=== PATIENT | female | born 1950 | race Caucasian/White ===

== ENCOUNTER 2017-01-06 08:00 | Outpatient (CLI) | payer MEDICARE, BC ==
[~2017-01-06] VITALS: Ht 165.1 cm; Wt 95.0 kg
[2017-01-07 12:01] VITALS: Ht 165.1 cm; Wt 95.0 kg
== END 2017-01-06 23:59 | disposition home or self-care (01) ==
LOC: LAB 08:00 → EDSTATUS 01-24 09:30
PROVIDERS: ATTEND Orthopaedic Surgery
DX: M48.06 Spinal stenosis, lumbar region (principal)
CPT/HCPCS: 86850; 86900; 86901; 86920

== ENCOUNTER 2017-01-19 05:22 | Inpatient (IN) | payer MEDICARE, BC ==
[2017-01-18 12:01] LABS: BASOPHILS % 0.4 % (0.0-2.0); EOSINOPHILS # 0.2 10^3/ul (0.0-0.5); HEMATOCRIT 39.7 % (37.0-47.0); HEMOGLOBIN 12.4 g/dl (12.0-16.0); LYMPHOCYTES # 2.4 10^3/ul (0.8-2.9); LYMPHOCYTES % 24.9 % (15.0-51.0); MEAN CORPUSCULAR HGB CONC 31.2 g/dl (32.0-37.0); MEAN CORPUSCULAR VOLUME 86.3 fl (82.0-101.0); MEAN PLATELET VOLUME 9.2 fl (7.4-10.4); MONOCYTES % 10.6 % (0.0-11.0); NEUTROPHILS % 61.8 % (39.0-77.0); PLATELET COUNT 284 10^3/UL (140-415); RED CELL DISTRIBUTION WIDTH 13.2 % (11.5-14.5); WHITE BLOOD COUNT 9.7 10^3/ul (4.8-10.8)
[2017-01-18 12:15] LABS: ADD UMIC YES; UR ASCORBIC ACID NEGATIVE (NEGATIVE); UR BILIRUBIN (Dip) NEGATIVE (NEGATIVE); UR BLOOD (Dip) NEGATIVE (NEGATIVE); UR CLARITY CLEAR (CLEAR); UR COLOR STRAW (YELLOW); UR GLUCOSE (Dip) NEGATIVE (NEGATIVE); UR KETONES (Dip) NEGATIVE (NEGATIVE); UR LEUKOCYTE ESTERASE (Dip) TRACE Leu/ul (NEGATIVE); UR NITRITE (Dip) NEGATIVE (NEGATIVE); UR RBC 0 /HPF (0-5); UR SPECIFIC GRAVITY (Dip) 1.006 (1.003-1.030); UR TOTAL PROTEIN (Dip) NEGATIVE (NEGATIVE); UR UROBILINOGEN (Dip) NEGATIVE (NEGATIVE)
[2017-01-18 12:25] LABS: ALBUMIN 4.6 g/dl (3.3-4.9); ALBUMIN/GLOBULIN RATIO 1.7; BILIRUBIN,INDIRECT 0.2 mg/dl (0-1.1); BILIRUBIN,TOTAL 0.2 mg/dl (0.2-1.3); CALCIUM 10.7 mg/dl (8.4-10.2); CREATININE 0.92 mg/dl (0.44-1.00); POTASSIUM 5.7 mmol/L (3.5-5.1); TOTAL PROTEIN 7.3 g/dl (6.1-8.1)
[2017-01-18 12:53] LABS: INR 0.88; PROTIME 11.9 Sec (12.2-14.2); PT RATIO 0.9
[~2017-01-19] VITALS: Ht 165.1 cm; Wt 94.5 kg
[2017-01-19] VITALS (23 sets, daily range): BP systolic 102–156; BP diastolic 50–97; PULSE 54–88; RESP 12–24; Ht 165.1 cm; Wt 94.5 kg
[~2017-01-19 05:22] MED LIST: LACTATED RINGER'S 1,000 ML IV* SCH; VANCOMYCIN 1 GM (PMX) 250 ML IVPB ONE
[2017-01-19] MEDS ORDERED: hydrALAzine 20 MG INJ IV PRN (06:30)
[2017-01-19] MEDS ORDERED: MIDAZOLAM 1 MG/ML 2 ML INJ IV PRN (06:30)
[2017-01-19] MEDS ORDERED: MEPERIDINE 25 MG INJ IV PRN (06:30)
[2017-01-19] MEDS ORDERED: DIPHENHYDRAMINE 50 MG INJ IV PRN (06:30)
[2017-01-19] MEDS ORDERED: ATROPINE 1 MG/10 ML SYRINGE IV PRN (06:30)
[2017-01-19] MEDS ORDERED: OXYCODONE/ACETAMINOPHEN (5/325) TAB PO PRN ×2 (06:30)
[2017-01-19] MEDS ORDERED: FENTAnyl 50 MCG/ML VIAL IV PRN ×2 (06:30)
[2017-01-19] MEDS ORDERED: EPHEDrine SULFATE 50 MG/5 ML SYG IV PRN (06:30)
[2017-01-19] MEDS ORDERED: LABETALOL HCL 20MG INJ IV PRN (06:30)
[2017-01-19] MEDS ORDERED: HYDROmorphONE (0.2 MG/ML) 10ML SYG IV PRN ×2 (06:30)
[2017-01-19] MEDS ORDERED: ONDANSETRON 4 MG INJ IV PRN ×2 (06:30→10:30)
[2017-01-19] MEDS ORDERED: morphine (1 MG/ML) 10ML SYRINGE IV PRN ×3 (06:30)
[2017-01-19] MEDS ORDERED: PREDNISOLONE LEFT EYE (06:31)
[2017-01-19] MEDS ORDERED: BRIM10DR2 LEFT EYE (06:31)
[2017-01-19] MEDS ORDERED: ROSU5TAB5 PO (06:31)
[2017-01-19] MEDS ORDERED: CELE200C PO (06:31)
[2017-01-19] MEDS ORDERED: SOLI10TA5 PO (06:31)
[2017-01-19] MEDS ORDERED: METF1000 PO (06:31)
[2017-01-19] MEDS ORDERED: SITA100T8 PO (06:31)
[2017-01-19] MEDS ORDERED: CYAN100080 PO (06:31)
[2017-01-19] MEDS ORDERED: EZET10TA3 PO (06:31)
[2017-01-19] MEDS ORDERED: PREG150C PO (06:31)
[2017-01-19] MEDS ORDERED: ERGO500037 PO (06:31)
--- NOTE | 2017-01-19 07:00 | HPN ---
Date/Time of Note Date/Time of Note DATE: 01/19/17 TIME: 07:00 Interval H&P Admission Note Pt. seen H&P reviewed: No system changes CIRILO ARIAS MD Jan 19, 2017 07:00
--- NOTE | 2017-01-19 07:53 | RADRPT ---
PROCEDURE: XR Lumbar Spine one view. CLINICAL INDICATION: Low back pain. Intraoperative. TECHNIQUE: Prone portable cross-table lateral. COMPARISON: No prior studies are available for comparison. FINDINGS: For the purposes of this report, the last apparent true disc level is considered to be L5-S1. Based on this, the posterior needle markers are present and lower L3 and lower L5 spinous process level. IMPRESSION: 1. Intraoperative imaging as described above. RPTAT: QQ .Emigdio Veliz MD, MD Date Time Electronically viewed and signed by .Emigdio Veliz MD, MD on 01/19/2017 07:53 .R/
[2017-01-19] MEDS ORDERED: POLYMYXIN/BACITRACIN 1L IRRIG IRR ONE (08:23)
[2017-01-19] MEDS ORDERED: BUPIVACAINE 0.25% (MPF) 10 ML 10 ML VIAL INJ ONE (08:24)
--- NOTE | 2017-01-19 08:41 | RADRPT ---
PROCEDURE: XR Lumbar Spine one view. CLINICAL INDICATION: Low back pain. Intraoperative. TECHNIQUE: Prone portable cross-table lateral. COMPARISON: Prior study done earlier the same day. FINDINGS: For the purposes of this report, the last apparent true disc level is considered to be L5-S1. Based on this, the posterior surgical instruments are noted overlying the spinous processes of L2, L3, an d L4. IMPRESSION: 1. Intraoperative imaging as described above. Call report: A call report of the findings was made to Dr. Chang on 01/19/2017 at 0800 hours. RPTAT: QQ .Emigdio Veliz MD, MD Date Time Electronically viewed and signed by .Emigdio Veliz MD, MD on 01/19/2017 08:40 .R/
[2017-01-19] MEDS ORDERED: GELATIN COMPRESSED 100CM SPONGE TOP ONE (09:33)
[2017-01-19] MEDS ORDERED: THROMBIN 5000 UNIT VIAL TOP ONE (09:33)
[2017-01-19] MEDS: HYDROmorphONE (0.2 MG/ML) 10ML SYG IV PRN ×2 (10:16→10:25)
[2017-01-19] MEDS ORDERED: ACETAMINOPHEN 325 MG TAB PO PRN (10:30)
[2017-01-19] MEDS ORDERED: CEPASTAT LOZENGE MT PRN (10:30)
[2017-01-19] MEDS ORDERED: DIAZEPAM 5 MG/ML SYG IM PRN (10:30)
[2017-01-19] MEDS ORDERED: NALOXONE (0.4 MG/ML) INJ IV PRN (10:30)
[2017-01-19] MEDS ORDERED: AL HYDROX/MG HYDROX/SIMETH 30 ML CUP PO PRN (10:30)
[2017-01-19] MEDS ORDERED: HYDROmorphONE 0.2 MG/ML PCA IV SCH (10:30)
[2017-01-19] MEDS ORDERED: NACL 0.9% 3 ML SYG IV SCH (10:30)
[2017-01-19] MEDS ORDERED: ZOLPIDEM 5 MG TAB PO PRN (10:30)
[2017-01-19] MEDS ORDERED: TRIMETHOBENZAMIDE 100 MG/ML VIAL IM PRN (10:30)
[2017-01-19] MEDS ORDERED: VANCOMYCIN 1 GM (PMX) 250 ML IVPB SCH (10:30)
[2017-01-19] MEDS ORDERED: DIAZEPAM 5 MG TAB PO PRN (10:30)
[2017-01-19] MEDS ORDERED: HYDROCODONE/APAP (5/325) TAB PO PRN (10:30)
[2017-01-19] MEDS ORDERED: PROCHLORPERAZINE 10 MG TAB PO PRN (10:30)
[2017-01-19] MEDS ORDERED: BETHANECHOL 25 MG TAB PO PRN (10:30)
[2017-01-19] MEDS ORDERED: DIPHENHYDRAMINE 50 MG CAP PO PRN (10:30)
--- NOTE | 2017-01-19 10:47 | OPR ---
Date/Time of Note Date/Time of Note DATE: 01/19/17 TIME: 10:42 Operative Report Preoperative Diagnosis Lumbar spinal stenosis at L2-L3 and L4. Postoperative Diagnosis Same Operation/Procedure Performed Central decompressive laminectomy at L2 Central decompressive laminectomy at L3 Central decompressive laminectomy at L4 Partial central decompressive laminectomy at L5 (superiorly) Baxano foraminal decompression L5 on the right Medial facetectomy and foraminotomy L2-3 L3-4 L4-5 bilateral Cosmetic wound closure (12 cm) Lateral localizing lumbar radiographs (2) Intraoperative nerve monitoring (2 hours) Surgeon: CIRILO ARIAS MD personnel assistant: ZIYAD LANDEROS Anesthesia: general Estimated Blood Loss: 150 - 200 ml's Specimens Spinous process of L2-L3 and L4 Grafts/Implants None Complications: None CIRILO ARIAS MD Jan 19, 2017 10:47
[2017-01-19] MEDS ORDERED: DEXTROSE 50% 50 ML SYRINGE IV PRN ×2 (13:00)
[2017-01-19] MEDS ORDERED: GLUCOSE GEL 15 GRAM TUBE PO PRN ×2 (13:00)
[2017-01-19] MEDS ORDERED: GLUCAGON 1 MG INJ IM PRN (13:00)
[2017-01-19] MEDS ORDERED: GLUCOSE GEL 15 GRAM TUBE BUCCAL PRN (13:00)
[2017-01-19] MEDS: SOD CHLORIDE 0.45% 1,000 ML IV SCH ×2 (13:15→20:30)
[2017-01-19] MEDS: INSULIN ASPART [NOVOLOG] 3 ML PEN SC SCH (17:25)
[2017-01-19] MEDS ORDERED: hydrALAzine 20 MG INJ ONE (18:03)
[2017-01-19] MEDS ORDERED: POLYMYXIN/BACITRACIN 1L IRRIG ONE (18:03)
[2017-01-19] MEDS ORDERED: DEXAMETHASONE 4 MG/ML 1 ML INJ ONE (18:03)
[2017-01-19] MEDS ORDERED: ROCURONIUM 50 MG INJ ONE (18:03)
[2017-01-19] MEDS ORDERED: BUPIVACAINE 0.25% (MPF) 10 ML 10 ML VIAL ONE (18:03)
[2017-01-19] MEDS ORDERED: LABETALOL HCL 20MG INJ ONE (18:03)
[2017-01-19] MEDS ORDERED: ONDANSETRON 4 MG INJ ONE (18:03)
[2017-01-19] MEDS ORDERED: MIDAZOLAM 1 MG/ML 2 ML INJ ONE (18:03)
[2017-01-19] MEDS ORDERED: GELATIN SIZE 100 SPONGE ONE (18:03)
[2017-01-19] MEDS ORDERED: HYDROmorphONE 0.2 MG/ML PCA ONE (18:03)
[2017-01-19] MEDS ORDERED: FENTAnyl 50 MCG/ML VIAL ONE (18:03)
[2017-01-19] MEDS ORDERED: GLYCOPYRROLATE 0.4 MG INJ ONE (18:03)
[2017-01-19] MEDS ORDERED: NEOSTIGMINE 3 MG/3 ML SYRINGE ONE (18:03)
[2017-01-19] MEDS ORDERED: THROMBIN 5000 UNIT VIAL ONE (18:03)
[2017-01-19] MEDS ORDERED: LIDOCAINE 2% (SDV) 5 ML INJ ONE (18:03)
[2017-01-19] MEDS ORDERED: PROPOFOL 20 ML ONE (18:03)
[2017-01-19] MEDS: EZETIMIBE 10 MG TAB PO SCH (18:14)
[2017-01-19] MEDS: BRIMONIDINE 0.2%-TIMOLOL 0.5% 5ML OPH LEFT EYE SCH ×2 (18:14→20:43)
[2017-01-19] MEDS: metFORMIN 500 MG TAB PO SCH (18:14)
[2017-01-19] MEDS: VANCOMYCIN 1 GM (PMX) 250 ML IVPB SCH (19:43)
[2017-01-19] MEDS: RANITIDINE 150 MG TAB PO SCH (20:39)
[2017-01-19] MEDS: PREGABALIN 75 MG CAP PO SCH (20:40)
[2017-01-20] MEDS: SOD CHLORIDE 0.45% 1,000 ML IV SCH (00:17)
[2017-01-20 05:10] VITALS: BP 112/56; PULSE 67; RESP 18
[2017-01-20 05:18] LABS: HEMOGLOBIN 9.8 g/dl (12.0-16.0)
[2017-01-20 06:01] LABS: CREATININE 0.82 mg/dl (0.44-1.00); POTASSIUM 4.3 mmol/L (3.5-5.1)
[2017-01-20 06:09] LABS: MAGNESIUM 1.7 mg/dl (1.7-2.5); PHOSPHORUS 3.6 mg/dl (2.5-4.9)
--- NOTE | 2017-01-20 07:15 | PN ---
Date/Time of Note Date/Time of Note DATE: 01/20/17 TIME: 07:07 Assessment/Plan Lines/Catheters IV Catheter Type (from Nrsg): Saline Lock Garcia in Place (from Nrsg): Yes Subjective 24 Hr Interval Summary Pt is POD #1 following multilevel lumbar decompression. She is doing well. She has been up ambulating. Drain output was 50cc and this will be monitored. VS are stable. She is afebrile.Hgb is 9.8, patient states she recently started taking iron supplements. Consider discharge if her hemovac is able to be removed and if she is cleared by Medicine. Discharge instructions reviewed with patient. Exam/Review of Systems Vital Signs Vitals Vital Signs Date Time Temp Pulse Resp B/P Pulse Ox O2 Delivery O2 Flow Rate FiO2 01/20/17 05:10 98.8 67 18 112/56 99 Nasal Cannula 2.0 Intake and Output 01/19/17 01/19/17 01/20/17 15:00 23:00 07:00 Intake Total 3750 ml 1350 ml 1520 ml Output Total 860 ml 580 ml 1050 ml Balance 2890 ml 770 ml 470 ml Results Result Diagram: 01/20/17 0440 01/20/17 0440 TERRIE TRAVIS Jan 20, 2017 07:15
--- NOTE | 2017-01-20 07:44 | CONS ---
Date/Time of Note Date/Time of Note DATE: 01/20/17 TIME: 07:42 Assessment/Plan Assessment/Plan Additional Assessment/Plan 1. Doing well post op lumbar laminectomy. 2. DM, sugars are acceptable 3. Mg noted, will replete. 4. DC per ortho and PT Consultation Date/Type/Reason Admit Date/Time Jan 19, 2017 at 05:22 Initial Consult Date Detailed Summary Respiratory: No cough, No shortness of breath Cardiovascular: No edema Gastrointestinal: No no complaints Genitourinary: other (martin in place) Musculoskeletal: back pain (mild with now absence of radicular leg pain) Exam/Review of Systems Vital Signs Vitals Vital Signs Date Time Temp Pulse Resp B/P Pulse Ox O2 Delivery O2 Flow Rate FiO2 01/20/17 05:10 98.8 67 18 112/56 99 Nasal Cannula 2.0 Intake and Output 01/19/17 01/19/17 01/20/17 15:00 23:00 07:00 Intake Total 3750 ml 1350 ml 1520 ml Output Total 860 ml 580 ml 1050 ml Balance 2890 ml 770 ml 470 ml Exam Neck: No jvd Respiratory: clear to auscultation Cardiovascular: regular rate and rhythm Gastrointestinal: soft Extremities: No edema (and no calf tend) Results Result Diagram: 01/20/17 0440 01/20/17 0440 Results 24 hrs Laboratory Tests Test 01/19/17 12:25 01/19/17 17:39 01/20/17 04:40 Bedside Glucose 186 136 Hemoglobin 9.8 #L Hematocrit 32.0 L Sodium Level 137 Potassium Level 4.3 Chloride Level 102 Carbon Dioxide Level 28 Anion Gap 11 # Blood Urea Nitrogen 12 Creatinine 0.82 Glucose Level 95 Calcium Level 9.0 Phosphorus Level 3.6 Magnesium Level 1.7 Medications Medications Current Medications Sodium Chloride (1/2 NS) 1,000 ml @ 100 mls/hr Q10H IV Last administered on t 00:17; Admin Dose 100 MLS/HR; Start 01/19/17 at 10:30 Acetaminophen/ Hydrocodone Bitart ([place] (5/325)) 1 tab Q4H PRN PO PAIN LEVEL 1 -5; Start 01/19/17 at 10:30 Acetaminophen/ Hydrocodone Bitart ([place] (5/325)) 2 tab Q4H PRN PO PAIN LEVEL 6 -10; Start 01/19/17 at 10:30 Zolpidem Tartrate (Ambien) 5 mg HS PRN PO INSOMNIA; Start 01/19/17 at 10:30 Prochlorperazine (Compazine) 10 mg Q4H PRN PO NAUSEA AND/OR VOMITING; Start at 10:30 Trimethobenzamide HCl (Tigan) 200 mg Q4H PRN IM NAUSEA AND/OR VOMITING; Start 01/19/17 at 10:30 Ondansetron HCl (Zofran Inj) 4 mg Q6H PRN IV NAUSEA AND/OR VOMITING; Start at 10:30 Al Hydrox/Mg Hydrox/Simethicone (Mag-Al Plus) 15 ml Q4H PRN PO CONSTIPATION; Start 01/19/17 at 10:30 Docusate Sodium (Colace) 100 mg BID PO ; Start 01/20/17 at 09:00 Acetaminophen (Tylenol Tab) 650 mg Q4H PRN PO TEMP GREATER THAN 101F OR PLUNKETT; Start 01/19/17 at 10:30 Ascorbic Acid (Vitamin C) 1,000 mg BID PO ; Start 01/20/17 at 09:00 Ferrous Sulfate (Ferrous Sulfate (Ec)) 325 mg TID PO ; Start 01/20/17 at 09:00 Ranitidine HCl (Zantac) 150 mg BID PO Last administered on 01/19/17 20:39; Admin Dose 150 MG; Start 01/19/17 at 21:00 Diazepam (Valium) 5 mg Q4H PRN PO MUSCLE SPASMS; Start 01/19/17 at 10:30 Diazepam (Valium) 5 mg Q4H PRN IM MUSCLE SPASMS; Start 01/19/17 at 10:30 Phenol (Cepastat Lozenge) 1 lozenge PRN PRN MT SORE THROAT Last administered on 01/19/17 18:14; Admin Dose 1 LOZENGE; Start 01/19/17 at 10:30 Bethanechol Chloride (Urecholine) 25 mg PRN PRN PO UNABLE TO VOID; Start at 10:30 Diphenhydramine HCl (Benadryl) 50 mg Q6H PRN PO PRURITUS; Start 01/19/17 at 10: 30 Hydromorphone HCl (Dilaudid FREIGHT BRAKEMAN) Q4PCA IV Last administered on 01/19/17 11:06 ; Admin Dose 6 MG; Start 01/19/17 at 10:30 Naloxone HCl 0.2 mg 0.2 mg Q2M PRN IV RR 8 BREATHS/MIN OR LESS; Start 01/19/17 at 10:30 Vancomycin HCl (Vancocin) 250 ml @ 125 mls/hr Q12H IVPB Last administered on 19:43; Admin Dose 125 MLS/HR; Start 01/19/17 at 19:00; Stop 01/20/17 at 08:59 Brimonidine/ Timolol (Combigan Oph) 1 drop BID LEFT EYE Last administered on 18:14; Admin Dose 1 DROP; Start 01/19/17 at 14:00 Cyanocobalamin (Vitamin B12) 1,000 mcg DAILY PO ; Start 01/20/17 at 09:00 EZETIMIBE (Zetia) 10 mg DAILY PO Last administered on 01/19/17 18:14; Admin Dose 10 MG; Start 01/19/17 at 14:00 Pregabalin (Lyrica) 150 mg BID PO Last administered on 01/19/17 20:40; Admin Dose 150 MG; Start 01/19/17 at 21:00 Miscellaneous Information 1 ea NOTE XX ; Start 01/19/17 at 13:00 Glucose (Glutose) 15 gm Q15M PRN PO DECREASED GLUCOSE; Start 01/19/17 at 13:00 Glucose (Glutose) 22.5 gm Q15M PRN PO DECREASED GLUCOSE; Start 01/19/17 at 13: 00 Dextrose (D50w Syringe) 25 ml Q15M PRN IV DECREASED GLUCOSE; Start 01/19/17 at 13:00 Dextrose (D50w Syringe) 50 ml Q15M PRN IV DECREASED GLUCOSE; Start 01/19/17 at 13:00 Glucagon (Glucagen) 1 mg Q15M PRN IM DECREASED GLUCOSE; Start 01/19/17 at 13:00 Glucose (Glutose) 15 gm Q15M PRN BUCCAL DECREASED GLUCOSE; Start 01/19/17 at 13 :00 Bethanechol Chloride (Urecholine) 25 mg PRN PRN PO UNABLE TO VOID; Start at 08:00 PAULINE ROY MD Jan 20, 2017 07:44
[2017-01-20] MEDS: INSULIN ASPART [NOVOLOG] 3 ML PEN SC SCH ×2 (08:00→11:10)
[2017-01-20] MEDS ORDERED: BETHANECHOL 25 MG TAB PO PRN (08:00)
[2017-01-20 08:29] VITALS: BP 117/56; RESP 20
[2017-01-20] MEDS ORDERED: DOCUSATE SODIUM 100 MG CAP PO SCH (09:00)
[2017-01-20] MEDS ORDERED: ASCORBIC ACID 500 MG TAB PO SCH (09:00)
[2017-01-20] MEDS ORDERED: CYANOCOBALAMIN 500 MCG TAB PO SCH (09:00)
[2017-01-20] MEDS ORDERED: MAGNESIUM SULFATE 2 GM/50 ML 50 ML IVPB ONE (09:00)
[2017-01-20] MEDS: metFORMIN 500 MG TAB PO SCH (09:18)
[2017-01-20] MEDS: BRIMONIDINE 0.2%-TIMOLOL 0.5% 5ML OPH LEFT EYE SCH (09:18)
[2017-01-20] MEDS: FERROUS SULFATE (EC) 325 MG TAB PO SCH ×2 (09:19→12:48)
[2017-01-20] MEDS: RANITIDINE 150 MG TAB PO SCH (09:21)
[2017-01-20] MEDS: EZETIMIBE 10 MG TAB PO SCH (09:21)
[2017-01-20] MEDS: PREGABALIN 75 MG CAP PO SCH (09:28)
[2017-01-20] MEDS: HYDROCODONE/APAP (5/325) TAB PO PRN ×2 (10:04→16:39)
[2017-01-20] MEDS: VANCOMYCIN 1 GM (PMX) 250 ML IVPB SCH (10:06)
[2017-01-20 12:47] LABS: ADD UMIC NO; UR ASCORBIC ACID NEGATIVE (NEGATIVE); UR BILIRUBIN (Dip) NEGATIVE (NEGATIVE); UR BLOOD (Dip) NEGATIVE (NEGATIVE); UR CLARITY CLEAR (CLEAR); UR COLOR STRAW (YELLOW); UR GLUCOSE (Dip) NEGATIVE (NEGATIVE); UR KETONES (Dip) NEGATIVE (NEGATIVE); UR LEUKOCYTE ESTERASE (Dip) NEGATIVE Leu/ul (NEGATIVE); UR NITRITE (Dip) NEGATIVE (NEGATIVE); UR SPECIFIC GRAVITY (Dip) 1.008 (1.003-1.030); UR TOTAL PROTEIN (Dip) NEGATIVE (NEGATIVE); UR UROBILINOGEN (Dip) NEGATIVE (NEGATIVE)
[2017-01-20 15:09] VITALS: BP 123/60; RESP 20
--- NOTE | 2017-01-23 18:20 | CONS ---
DATE OF ADMISSION: 01/19/2017 DATE OF CONSULTATION: 01/19/2017 Dr. Chang, thank you very much for allowing me to evaluate the above patient, a 66-year-old female, who underwent lumbar laminectomy. HISTORICAL EVENTS: As you well know, this patient has had progressive disabling pain involving her low back, and following your evaluation and appropriate imaging studies, elected to proceed with surgery. On the orthopedic floor she is comfortable without cough, wheezing, shortness of breath, nausea, vomiting, abdominal or chest pain. PAST MEDICAL HISTORY: Important past medical history includes anemia, history of diabetes, fibromyalgia, GERD, hypertension, hyperlipidemia. Surgeries include appendectomy, cholecystectomy, complete hysterectomy. MEDICATIONS: Important medications prior to admission, Zetia 10 mg per day, Januvia 100 mg per day, Crestor 5 mg per day, metformin 500 mg b.i.d., vitamin D 50,000 units weekly. ALLERGIES: ALLERGIES TO CEPHALEXIN AND PENICILLIN. SOCIAL HISTORY: . Does not smoke. Does not drink. PHYSICAL EXAMINATION: GENERAL: [place] female in no acute distress. VITAL SIGNS: Blood pressure 120/80, pulse 70, respirations were 20, she was afebrile. HEENT: Eyes, extraocular muscles were full. Nose, mouth and throat were normal. NECK: Supple. There was no jugular venous distention, thyroid enlargement, or adenopathy. Carotids 2 plus. No bruits. LUNGS: Clear. HEART: Rhythm regular. No murmur. No 3rd or 4th sound. ABDOMEN: Obese. Liver and spleen are not palpable. No mass or tenderness is noted. EXTREMITIES: No edema. Calves nontender. IMPRESSION: 1. Stable postoperative lumbar laminectomy. 2. History of diabetes. Will continue oral agents and provide a.c. insulin coverage. 3. Will evaluate daily for signs and symptoms of thromboembolic disease. 4. Hyperlipidemia. Statin to be continued. Dictated By: Amador Hawthorne MD /[email or web address] /Document#: [id number]
--- NOTE | 2017-01-24 09:04 | DS ---
Date/Time of Note Date/Time of Note DATE: 01/24/17 TIME: 09:02 Discharge Summary Admission/Discharge Info Admit Date/Time Jan 19, 2017 at 05:22 Discharge Date/Time Jan 20, 2017 at 17:10 Discharge Diagnosis Lumbar spinal stenosis at L2-L3 and L4. Patient Condition: Good Hospital Course Pt did well post-operatively. Pain was controlled and activity was advanced. Pt tolerated diet. She was discharged safely to home in good condition on POD #1. Home Meds Reported Medications Ergocalciferol (Vitamin D2) (VITAMIN D2) 50,000 Unit Capsule, 01179 UNIT PO QWEEK, CAP 01/19/17 Cyanocobalamin* (Vitamin B-12*) 1,000 Mcg Tablet.sa, 1000 MCG PO DAILY, TAB 01/19/17 Rosuvastatin Calcium* (Crestor*) 5 Mg Tablet, 5 MG PO EVERY OTHER DAY, #30 TAB 01/19/17 Ezetimibe* (Zetia*) 10 Mg Tablet, 10 MG PO, TAB 01/19/17 [Prednisolone Drop] No Conflict Check, 0.1 LEFT EYE 3 TIMES A WEEK 01/19/17 Brimonidine/Timolol* (Combigan*) 10 Ml Drops, 1 DROP LEFT EYE BID, EA 01/19/17 Solifenacin* (Vesicare*) 10 Mg Tablet, 10 MG PO DAILY, TAB 01/19/17 Metformin Hcl* (Metformin Hcl*) 1,000 Mg Tablet, 1000 MG PO BID, #30 TAB 01/19/17 Pregabalin* (Lyrica*) 150 Mg Capsule, 150 MG PO BID, CAP 01/19/17 Celecoxib* (Celebrex*) 200 Mg Capsule, 200 MG PO BID, CAP 01/19/17 Sitagliptin* (Januvia*) 100 Mg Tablet, 100 MG PO DAILY, #30 TAB 01/19/17 Follow-up Plan Follow up with Dr. Chang in 2 weeks. Primary Care Provider Care Physician No Primary Pending Labs Laboratory Tests Test 01/23/17 09:04 Lab Scanned Report REFERENCE [id number] THADDEUSTERRIE Jan 24, 2017 09:04
--- NOTE | 2017-01-24 12:14 | OPR ---
DATE OF OPERATION: 01/19/2017 PREOPERATIVE DIAGNOSIS: Lumbar spinal stenosis at L2, L3 and L4. POSTOPERATIVE DIAGNOSIS: Lumbar spinal stenosis at L2, L3 and L4. OPERATION PROCEDURES: 1. Central decompressive laminectomy, L2. 2. Central decompressive laminectomy, L3. 3. Central decompressive laminectomy, L4. 4. Partial central decompressive laminectomy, L5 (superiorly). 5. Baxano foraminal decompression, L5 on the right. 6. Medial facetectomy and foraminotomy, L2-3, L3-4, L4-5 bilaterally. 7. Cosmetic wound closure (12 cm). 8. Lateral localized lumbar radiographs (2). 9. Intraoperative nerve monitoring (2 hours). SURGEON: Saturnino Chang MD. COMPUTATIONAL THEORY SCIENTIST: MARQUES Newman. ANESTHESIA: General endotracheal by Dr. Moody. ESTIMATED BLOOD LOSS: Two hundred mL. None replaced. DRAINS: Two medium Hemovac drains employed. COMPLICATIONS: No complications. PERTINENT HISTORY AND PHYSICAL: This is a 66-year-old female with persistent back and bilateral leg pain and numbness, which has been unrelieved by conservative management. She has undergone a number of diagnostic studies, including an MRI of the lumbar spine which demonstrated lumbar spinal stenosis at L2, L3 and L4. Treatment options were discussed with the patient. She would like to proceed with surgery. OPERATIVE FINDINGS AT SURGERY: A moderate central stenosis at L2, L3 and L4 was confirmed. There was marked foraminal stenosis at L5 on the right. Baseline intraoperative nerve monitoring revealed a decrease in the L2 potentials bilaterally of 30 percent, the L3 potentials bilaterally at 40 percent, and the L4 potentials bilaterally at 50 percent. These all returned to normal at the completion of the surgery. OPERATIVE PROCEDURE: With the patient in supine position, after satisfactory induction of general trach anesthesia by Dr. Moody, the patient was turned to the prone kneeling position onto the [place] frame. All pressure points were carefully padded. The back was prepped and draped in the usual sterile fashion. Athrombic pumps were applied to the legs below the knees for venous stasis during and after procedure. An indwelling Garcia catheter was also placed. Preoperative steel-tipped bladder drainage during and after the procedure. Two spinal needles were placed next, felt to be the L2 and L4 spinous processes. Lateral radiogram was taken to confirm anatomical localization. A 12-cm incision encountered midline from L2-L5 through skin and subcutaneous tissue to the deep fascia after the skin was infiltrated with quarter percent Marcaine without epinephrine for postoperative analgesia. Superficial retractors were placed. Hemostasis secured electrocautery. Throughout the procedure, copious amounts of antibacterial irrigating solution was used to periodically irrigate the wound. The fascia was incised in midline with a hot knife and bilateral subperiosteal dissection carried out from L2 to the sacrum. Deep retractors were placed, and deep hemostasis secured via electrocautery. A second intraoperative radiograph was taken with Elena clamps placed and was felt to be at the spinous process of L2, L3 and L4. This was confirmed on the second x-ray. A central decompressive laminectomy at L4, L3 and L2 was then carried out using a Emely right angle bone rongeur, Leksell rongeur, Kerrison punch, and curettes. Ligamentum flava was excised with sharp dissection. The operating microscope was then moved into place. A medial facetectomy and foraminotomy at L2-3, L3-4 and L4-5 bilaterally were then carried out using a small hand osteotome and mallet, Kerrison punch, and curettes. The epidural hemostasis was secured with bipolar electrocautery on a low setting. At this point, there was still some distal foraminal stenosis at L5 on the right and the Baxano instrumentation was brought onto the field. The IPSI probe was then placed into the L5 foramen on the right and the guidewire passed in the usual fashion. The neuro probe was then placed into the foramen to isolate the exiting L5 nerve root. With this having been assured, a 7.5 mm Baxano rasp was inserted into the right L5 foramen and multiple reciprocations carried out to enlarge the posterior aspect of the foramen. The instrumentation was withdrawn. The foramen was flooded with 20 mL of irrigating solution and hemostasis secured with bipolar electrocautery on a low setting. The anesthesiologist was then asked to perform a Valsalva maneuver to 40 mmHg, and no spinal fluid leak was noted. The wound was then closed in layers over 2 medium Hemovac drains using number 1 Stratafix sutures deep per musculature and deep fascia back, 2-0 Stratafix suture in subcu tissue, and a 4-0 Vicryl subcuticular cosmetic closing suture on the skin. Dermabond sterile compressive dressings were applied. The patient, having tolerated the procedure well, was then turned into supine position onto her bed and extubated by Dr. Moody. She was transported to recovery in satisfactory condition. At the conclusion of the procedure, sponge, instrument, and needle counts were all correct. NEED FOR RN CONCURRENT REVIEW: During this spinal surgical procedure, my child welfare assistant was used to retract and protect the spinal nerves and dural sac. My child welfare assistant also employed the suction catheters to evacuate blood from the surgical field to improve visualization of the neural structures. The child welfare assistant was medically necessary to facilitate the completion of the surgery in a safe and expeditious manner. [facility] regulations, as well as hospital bylaws, preclude the use of non- licensed health care personnel such as operating room technicians, to perform these functions. Throughout the procedure, neural monitoring was carried out by [employer], including EMG, SSEP and MEP monitoring of the L3, L4, L5 and S1 nerve roots bilaterally along with spinal cord potentials. These were interpreted by a neurologist employed by [employer]. Dictated By: Saturnino Chang MD /[email or web address]/ /Document#: [id number] CC: Amador Hawthorne MD;*[facility]*
== END 2017-01-20 17:10 | disposition home or self-care (01) | DRG 517 ==
LOC: REC 05:22 → MS1 11:02
PROVIDERS: ADMIT Orthopaedic Surgery; ATTEND Orthopaedic Surgery
PROC: 01NB0ZZ Release Lumbar Nerve, Open Approach (ICD-10-PCS; principal; 2017-01-19 07:00)
DX: M48.06 Spinal stenosis, lumbar region (principal); E66.01 Morbid (severe) obesity due to excess calories; I10 Essential (primary) hypertension; E11.9 Type 2 diabetes mellitus without complications; K21.9 Gastro-esophageal reflux disease without esophagitis; E78.5 Hyperlipidemia, unspecified; Z68.34 Body mass index [BMI] 34.0-34.9, adult; G47.33 Obstructive sleep apnea (adult) (pediatric); Z79.84 Long term (current) use of oral hypoglycemic drugs; Z88.0 Allergy status to penicillin
CPT/HCPCS: 72020; 80048; 80053; 81001; 81003; 82962; 83735; 84100; 84132; 85014; 85018; 85025; 85610; 85651; 85730; 86850; 86900; 86901; 86920; 88304; 88311; 97116; 97162; 97530; J0360; J1100; J1170; J1815; J2250; J2405; J2710; J3010; J3370; J3475; J7120